=== PATIENT | female | born 1985 | race Two or more races ===

== ENCOUNTER → 2017-01-26 | Outpatient (CLI) | payer OTHER ==
[~2017-01-26] MED LIST: NONE PER PT
== END | disposition home or self-care (01) ==
LOC: STAR 14:33
PROVIDERS: ATTEND Surgery
DX: Z02.9 Encounter for administrative examinations, unspecified (principal)

== ENCOUNTER 2017-01-30 11:24 | Day surgery (SDC) | payer OTHER ==
[2017-01-26 15:10] VITALS: BP 113/77
[~2017-01-30] VITALS: Ht 157.5 cm; Wt 53.6 kg
[2017-01-30] MEDS ORDERED: LIDOCAINE 1%, 2ML ONE (11:58)
[2017-01-30] MEDS ORDERED: LACTATED RINGERS 1,000 ML IV SCH (12:15)
[2017-01-30 12:26] LABS: HCG UR OBC PASS
[2017-01-30] MEDS ORDERED: LIDOCAINE 1%, 2ML SQ PRN (12:30)
[2017-01-30] MEDS ORDERED: MIDAZOLAM 1 MG/ML, 2ML ONE (12:39)
[2017-01-30] MEDS ORDERED: FENTANYL PF 100 MCG/2ML ONE (12:40)
[2017-01-30] MEDS ORDERED: BUPIVACAINE/PF 0.5% ONE (12:56)
[2017-01-30] MEDS ORDERED: EPINEPHRINE 1 MG/ML, 1ML ONE (12:56)
[2017-01-30] MEDS ORDERED: CEFAZOLIN 1,000 MG ONE (13:14)
[2017-01-30] MEDS ORDERED: KETOROLAC 30 MG/1 ML ONE (13:14)
[2017-01-30] MEDS ORDERED: DEXAMETHASONE 4 MG/ML, 1ML ONE (13:14)
[2017-01-30] MEDS ORDERED: PROPOFOL 10 MG/ML, 20ML ONE (13:14)
[2017-01-30] MEDS ORDERED: ONDANSETRON 2MG/ML, 2ML ONE (13:14)
[2017-01-30] MEDS ORDERED: METOCLOPRAMIDE 5 MG/ML, 2ML ONE (13:14)
[2017-01-30] MEDS ORDERED: HYDROmorphone 2 MG/ML, 1ML ONE (13:30)
[2017-01-30] MEDS ORDERED: MIDAZOLAM 1 MG/ML, 2ML IV PRN (14:00)
[2017-01-30] MEDS ORDERED: hydrALAzine 20 MG/ML, 1ML IV PRN (14:00)
[2017-01-30] MEDS ORDERED: PROMETHAZINE 25 MG/ML, 1ML IV PRN (14:00)
[2017-01-30] MEDS ORDERED: FENTANYL PF 100 MCG/2ML IV PRN (14:00)
[2017-01-30] MEDS ORDERED: LABETALOL 5MG/ML, 20ML IV PRN (14:00)
[2017-01-30] MEDS ORDERED: OXYcodone 5 MG/5 ML ORAL.SOL UDC PO PRN (14:00)
[2017-01-30] MEDS ORDERED: MEPERIDINE/PF 25MG/0.5ML IVPush PRN (14:00)
[2017-01-30] MEDS ORDERED: ONDANSETRON 2MG/ML, 2ML IVPush PRN (14:00)
[2017-01-30] MEDS ORDERED: PLEASE ENTER ALLERGIES MC SCH ×2 (14:00)
[2017-01-30] MEDS ORDERED: ALBUTEROL/IPRATROPIUM 2.5MG/0.5MG, 3 ML NPPB PRN (14:00)
[2017-01-30] MEDS ORDERED: ACETAMINOPHEN 325 MG TABLET PO PRN (14:00)
[2017-01-30] MEDS ORDERED: HYDROmorphone 1 MG/ML, 1ML IV PRN (14:00)
== END 2017-01-30 16:10 ==
LOC: OR 11:24
PROVIDERS: ATTEND Surgery
DX: K42.0 Umbilical hernia with obstruction, without gangrene (principal); Z91.09 Other allergy status, other than to drugs and biological substances
CPT/HCPCS: 49587; 81025; J0171; J0690; J1100; J1170; J1885; J2250; J2405; J2704; J2765; J3010; J3490; J7120

== ENCOUNTER 2019-10-10 15:19 | Emergency (ER) | payer OTHER ==
[~2019-10-10] VITALS: Ht 157.5 cm; Wt 63.5 kg
[2019-10-10 16:34] LABS: BASOPHILS # (AUTO) 0.03 x10^3/uL (0-0.1); BASOPHILS % (AUTO) 0 % (0-1); EOSINOPHILS # (AUTO) 0.07 x10^3/uL (0-0.4); EOSINOPHILS % (AUTO) 1 % (1-7); LYMPHOCYTES # (AUTO) 2.94 x10^3/uL (1-3.4); LYMPHOCYTES % (AUTO) 29 % (22-44); MD NO; MEAN CORPUSCULAR HGB CONC 33.5 g/dL (32.4-35.8); MEAN CORPUSCULAR VOLUME 89.6 fL (80-100); MEAN PLATELET VOLUME 8.8 fL (7.4-10.4); MONOCYTES # (AUTO) 0.13 x10^3/uL (0.2-0.8); MONOCYTES % (AUTO) 1 % (2-9); NEUTROPHILS # (AUTO) 7.13 x10^3/uL (1.8-6.8); NEUTROPHILS % (AUTO) 69 % (42-75); PLATELET COUNT 286 x10^3/uL (130-400); RED BLOOD COUNT 4.84 x10^6/uL (3.82-5.3); RED CELL DISTRIBUTION WIDTH 12.9 % (9.6-15.2)
--- NOTE | 2019-10-10 17:23 | NUR ---
PT CAME IN CO OF A "LUMP IN HER THROAT". PT REPORTS NO OTHER SYMPTOMS
[2019-10-10 17:40] LABS: ALBUMIN 4.1 g/dL (3.4-5.0); ANION GAP 10 mmol/L (5-15); CALCIUM 8.9 mg/dL (8.5-10.1); CHLORIDE 104 mmol/L (98-107); CREATININE 0.79 mg/dL (0.55-1.02)
[2019-10-10 17:41] VITALS: BP 121/74
--- NOTE | 2019-10-10 17:41 | NUR ---
PT RESTING IN [facility]. NAD. VSS.
== END 2019-10-10 18:06 | disposition home or self-care (01) ==
LOC: ED 17:30
DX: K21.9 Gastro-esophageal reflux disease without esophagitis (principal); F41.1 Generalized anxiety disorder
CPT/HCPCS: 36415; 70360; 80048; 82040; 85025; 86308; 99284

== ENCOUNTER → 2019-11-15 | Outpatient (CLI) | payer OTHER | END | disposition home or self-care (01) | LOC: CVU 15:07 | PROVIDERS: ATTEND Internal Medicine Cardiovascular Disease | DX: Z01.30 Encounter for examination of blood pressure without abnormal findings (principal); R07.9 Chest pain, unspecified; R00.2 Palpitations | CPT/HCPCS: 93306; 93930 ==

== ENCOUNTER 2020-07-06 14:39 | Emergency (ER) | payer OTHER ==
[~2020-07-06] VITALS: Ht 157.5 cm; Wt 64.0 kg
--- NOTE | 2020-07-06 15:39 | NUR ---
PT C/O ABNORMAL HEARTBEATS THROUGHOUT THE DAY. LAST EVENT OCCURED TODAY WHILE SITTING AT DESK AT WORK, NOT STRESSED. PT STATES IT HAS BEEN OCCURRING OVER THE LAST 2 WEEKS. WHEN THE HEARTBEATS OCCUR THE PT FEELS VLAMMY, DIZZY AND FLUSHED. PT DENIES SOB OR N/V. PT HAS AN APPOINTMENT WITH [facility] ON THURSDAY.
[2020-07-06 15:54] LABS: BASOPHILS % (AUTO) 1 % (0-1); EOSINOPHILS % (AUTO) 1 % (1-7); LYMPHOCYTES % (AUTO) 29 % (22-44); MD NO; MEAN CORPUSCULAR HEMOGLOBIN 30.3 pg (27.0-34.8); MEAN CORPUSCULAR HGB CONC 34.3 g/dL (32.4-35.8); MEAN PLATELET VOLUME 8.1 fL (7.4-10.4); MONOCYTES % (AUTO) 6 % (2-9); NEUTROPHILS % (AUTO) 63 % (42-75); PLATELET COUNT 340 x10^3/uL (130-400); RED CELL DISTRIBUTION WIDTH 13.1 % (9.6-15.2)
[2020-07-06 16:00] LABS: ALANINE AMINOTRANSFERASE 29 U/L (12-78); ALBUMIN 3.8 g/dL (3.4-5.0); ANION GAP 5 mmol/L (5-15); CALCIUM 8.4 mg/dL (8.5-10.1); CHLORIDE 110 mmol/L (98-107)
[2020-07-06 16:06] LABS: ALKALINE PHOSPHATASE 71 U/L (45-117); BILIRUBIN,TOTAL 0.2 mg/dL (0.2-1.0); CREATININE 0.77 mg/dL (0.55-1.02); FREE T4 (FREE THYROXINE) 0.95 ng/dL (0.76-1.46)
[2020-07-06 17:00] VITALS: BP 115/78
--- NOTE | 2020-07-06 17:30 | NUR ---
PT REC'VD DISCHARGE INSTRUCTIONS AND EDUCATION. PT HAD NO FURTHER QUESTIONS. PT AMBULATED TO DC AREA, STEADY GAIT.
== END 2020-07-06 17:35 | disposition home or self-care (01) ==
LOC: ED 15:22
DX: R00.2 Palpitations (principal); K21.9 Gastro-esophageal reflux disease without esophagitis
CPT/HCPCS: 36415; 80053; 83735; 84439; 84443; 84703; 85025; 93005; 99284